=== PATIENT | male | born 1980 | race Caucasian/White ===

== ENCOUNTER → 2021-11-26 | Outpatient (CLI) | payer OTHER ==
--- NOTE | 2021-11-26 12:45 | XR ---
EXAMINATION TYPE: XR tibia fibula LT, XR ankle limited LT DATE OF EXAM: 11/26/2021 12:38 PM INDICATION: Patient age:Male; 41 years old; Reason for study: [id number]; COMPARISON: None TECHNIQUE: The left tibia/fibula was examined in AP and lateral projections. The ankle is examined i n AP lateral and oblique views. FINDINGS: No evidence of any acute osseous pathology, joint dislocation. Mild soft tissue swelling ar ound the ankle. Mild tricompartmental osteophyte formation of the knee. IMPRESSION: 1. No evidence of acute fracture. 2. Subcutaneous edema ankle suggests underlying soft tissue injury.
== END | disposition home or self-care (01) ==
LOC: RADXRMAIN 12:09
PROVIDERS: ATTEND Internal Medicine
DX: M25.572 Pain in left ankle and joints of left foot (principal); R60.0 Localized edema